=== PATIENT | male | born 1975 | race Caucasian/White ===

== ENCOUNTER 2016-08-11 11:25 | Emergency (ER) | payer OTHER | END 2016-08-11 16:30 | disposition left against medical advice (07) | LOC: ER 11:25 | DX: J21.9 Acute bronchiolitis, unspecified (principal); F17.210 Nicotine dependence, cigarettes, uncomplicated | CPT/HCPCS: 36415; Q9967 ==

== ENCOUNTER 2016-09-22 07:48 | Emergency (ER) | payer OTHER | END 2016-09-22 08:45 | disposition home or self-care (01) | LOC: ER 07:48 | DX: M25.571 Pain in right ankle and joints of right foot (principal); M54.2 Cervicalgia; M54.9 Dorsalgia, unspecified; F17.210 Nicotine dependence, cigarettes, uncomplicated | CPT/HCPCS: 96372 ==

== ENCOUNTER 2016-11-03 15:34 | Emergency (ER) | payer OTHER | END 2016-11-03 15:47 | disposition home or self-care (01) | LOC: ER 15:34 | DX: N13.2 Hydronephrosis with renal and ureteral calculous obstruction (principal); F17.210 Nicotine dependence, cigarettes, uncomplicated; Z79.899 Other long term (current) drug therapy | CPT/HCPCS: 96361; 96374; 96375; J1200; J1885 ==